=== PATIENT | female | born 1950 | race Caucasian/White ===

== ENCOUNTER 2017-11-27 09:06 | Emergency (ER) | payer OTHER ==
[2017-11-27 09:15] VITALS: BP 155/90; PULSE 73; TEMP 97.7; BMI 32.9
--- NOTE | 2017-11-27 09:44 | PDOC ---
History of Present Illness - General Chief Complaint: Asthma Stated Complaint: SOB, PAIN (ASTHMA) Time Seen by Provider: 11/27/17 09:32 History Source: Patient Exam Limitations: No Limitations - History of Present Illness Initial Comments: 11/27/17 15:57 Patient is a 67-year-old female with history of depression and anxiety presents with nasal congestion, and reports she keeps having asthma exacerbations at home , is having issues with rats and cockroaches. 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 Patient is breathing comfortably, no tachypnea. No fever. No chest pain or shortness of breath. Past Medical History: [Denies]. Allergies: No known allergies Medications: [] Family History: Non-contributory Social History: Denies smoking, alcohol use, or IVDU Vital signs on arrival are [notable for pulse of 96.] Review of Systems GENERAL/CONSTITUTIONAL: [No fever or chills. No weakness. No weight change.] HEAD, EYES, EARS, NOSE AND THROAT: [No change in vision. No ear pain or discharge. No sore throat. ] CARDIOVASCULAR: [No chest pain or shortness of breath.] RESPIRATORY: [Cough, no wheezing, no hemoptysis] GASTROINTESTINAL: [No nausea, vomiting, diarrhea or constipation. No rectal bleeding.] GENITOURINARY: [No dysuria, frequency, or change in urination.] MUSCULOSKELETAL: [No joint or muscle swelling or pain. No neck or back pain.] SKIN : [No rash or easy bruising.] NEUROLOGIC: [No headache, vertigo, loss of consciousness, or loss of sensation.] PSYCHIATRIC: [No depression or anxiety.] ENDOCRINE: [No increased thirst. No abnormal weight change.] HEMATOLOGIC/LYMPHATIC: [No anemia, easy bleeding, or history of blood clots.] ALLERGIC/IMMUNOLOGIC: [No hives or skin allergy. No latex allergy.] Physical Exam: GENERAL: [The patient is awake, alert, and fully oriented, in no acute distress. ] HEAD: [Normal with no signs of trauma.] EYES: [Pupils equal, round and reactive to light, extraocular movements intact, sclera anicteric, conjunctiva clear.] ENT: [Ears normal, nares patent, oropharynx clear without exudates. Moist mucous membranes. No uvula deviation] NECK: [Normal range of motion, supple without lymphadenopathy, JVD, or masses.] LUNGS: [Breath sounds equal, clear to auscultation bilaterally. No wheezes, and no crackles.] HEART: [Regular rate and rhythm, normal S1 and S2 without murmur, rub or gallop. ] ABDOMEN: [Soft, nontender, normoactive bowel sounds. No guarding, no rebound. No masses. No bruising or abrasions] RECTAL : [Guaiac negative, normal rectal tone.] MUSCULOSKELETAL: [Normal range of motion, no edema. No clubbing or cyanosis. No cords, erythema, or tenderness. No CVA Tenderness with fist.] NEUROLOGICAL: [Cranial nerves II through XII grossly intact. Normal speech, normal gait.] PSYCH: [Normal mood, normal affect.] SKIN: [Warm, Dry, normal turgor, no rashes or lesions noted.] 11/27/17 17:24 Past History - Past Medical History Allergies/Adverse Reactions: Allergies Allergy/AdvReac Type Severity Reaction Status Date / Time Penicillins Allergy Verified 11/27/17 09:08 Home Medications: Ambulatory Orders Albuterol 0.083% Nebulizer Maryjo [Ventolin 0.083% Nebulizer Soln -] 1 neb NEB Q4H #30 vial 11/27/17 Fluticasone Prop 0.05% Nasal [Flonase -] 1 - 2 spray NS BID #1 spray.pump Loratadine [Claritin] 10 mg PO HS #30 tablet 11/27/17 Nebulizer [Truneb Nebulizer] 1 each MC Q4H PRN #1 each 11/27/17 Asthma: Yes Cardiac Disorders: Yes (ANGINA) COPD: No Diabetes: Yes HTN: Yes Other medical history: VERTIGO - Surgical History Abdominal Surgery: Yes Appendectomy: Yes - Immunization History Immunization Up to Date: Yes - Suicide/Smoking/Psychosocial Hx Smoking History: Never smoked Have you smoked in the past 12 months: No Information on smoking cessation initiated: No Hx Alcohol Use: No Drug/Substance Use Hx: No Substance Use Type: None *Physical Exam - Vital Signs Last Vital Signs Temp Pulse Resp BP Pulse Ox 97.7 F 73 16 155/90 99 11/27/17 09:09 11/27/17 09:09 11/27/17 09:09 11/27/17 09:09 11/27/17 09:09 Medical Decision Making - Medical Decision Making 11/27/17 17:27 A/P: Patient here requesting albuterol for her nebulizer at home. Reports having asthma exacerbations prior to arrival. Upon arrival lungs are clear, patient with no tachypnea breathing comfortably. In no acute distress. Patient does have nasal congestion with no evidence of sinusitis. I will discharge patient home on Flonase, albuterol for nebulizer and Claritin, to follow-up with ENT if symptoms persist. If any chest pain, shortness of breath, wheezing, or any other concerns return to ER *DC/Admit/Observation/Transfer Diagnosis at time of Disposition: Reactive airway disease Qualifiers: Asthma severity: mild Asthma persistence: intermittent Asthma complication type : uncomplicated Qualified Code(s): J45.20 - Mild intermittent asthma, uncomplicated - Discharge Dispostion Disposition: HOME Condition at time of disposition: Stable Admit: No - Prescriptions Prescriptions: Albuterol 0.083% Nebulizer Maryjo [Ventolin 0.083% Nebulizer Soln -] 1 neb NEB Q4H #30 vial Fluticasone Prop 0.05% Nasal [Flonase -] 1 - 2 spray NS BID #1 spray.pump Loratadine [Claritin] 10 mg PO HS #30 tablet Nebulizer [Truneb Nebulizer] 1 each MC Q4H PRN #1 each PRN Reason: Asthma - Referrals Referrals: Eduardo Solis MD [Staff Physician] - - Patient Instructions Printed Discharge Instructions: Asthma -- Adult Additional Instructions: Recommend follow-up with Dr. Solis or your primary care doctor Please use treatments as needed, albuterol inhaler as needed. If any chest pain, shortness of breath, or any other concerns return to ER - Post Discharge Activity
== END 2017-11-27 09:48 | disposition home or self-care (01) ==
LOC: JERFT 09:06
DX: J45.20 Mild intermittent asthma, uncomplicated (principal); R42 Dizziness and giddiness; I10 Essential (primary) hypertension
CPT/HCPCS: 99281-25

== ENCOUNTER 2018-10-19 07:55 | Emergency (ER) | payer OTHER ==
[2018-10-19 08:01] VITALS: BP 170/92; PULSE 95; TEMP 98.7; BMI 32.5
--- NOTE | 2018-10-19 08:09 | PDOC ---
History of Present Illness - General Chief Complaint: Respiratory Stated Complaint: ASTHMA Time Seen by Provider: 10/19/18 08:08 - History of Present Illness Initial Comments: 10/19/18 08:08 Ms. Balderrama is a 68 yo female w/ pmh of HTN, HLD, DM, asthma, depression, and anxiety who presents for evaluation of 1 week history of shortness of breath with cough productive of green sputum. EPatient reports she has additionally had fevers and chills over this time period has had some nausea with vomiting 2/ 2 coughing as well. Believes her asthma has been acting up on her. Has been taking her rescue inhaler at home without much improvement of symptoms. The patient denies chest pain, headache and dizziness. Denies dysuria, frequency , urgency and hematuria. PCP: Gaurav Past History - Past Medical History Allergies/Adverse Reactions: Allergies Allergy/AdvReac Type Severity Reaction Status Date / Time Penicillins Allergy Verified 10/19/18 08:01 Home Medications: Ambulatory Orders Acetaminophen [Tylenol Extra Strength] 500 mg PO Q6H PRN 03/17/18 Aspirin [Aspirin EC] 81 mg PO DAILY 03/17/18 Atorvastatin Ca [Lipitor] 40 mg PO HS 03/17/18 Cholecalciferol (Vitamin D3) [Vitamin D3] 5,000 unit PO DAILY 03/17/18 Lisinopril [Zestril] 40 mg PO DAILY 03/17/18 Meclizine HCl [Antivert -] 25 mg PO QID #30 tablet MDD 4 03/17/18 Metformin HCl [Glucophage] 500 mg PO DAILY 03/17/18 Metoprolol Succinate 25 mg PO DAILY 03/17/18 Montelukast Na [Singulair -] 10 mg PO HS 03/17/18 Omeprazole 40 mg PO DAILY 03/17/18 Azithromycin [Zithromax 250mg Tablets -] 250 mg PO UTDICT #6 tab 10/19/18 Prednisone 10 mg PO DAILY #16 tablet 10/19/18 Asthma: Yes Cardiac Disorders: Yes (ANGINA) COPD: No Diabetes: Yes HTN: Yes - Surgical History Abdominal Surgery: Yes Appendectomy: Yes - Immunization History Immunization Up to Date: Yes - Suicide/Smoking/Psychosocial Hx Smoking History: Never smoked Have you smoked in the past 12 months: No Hx Alcohol Use: No Drug/Substance Use Hx: No Substance Use Type: None Review of Systems - Review of Systems Comments:: 10/19/18 08:09 GENERAL/CONSTITUTIONAL: No fever or chills. No weakness. HEAD, EYES, EARS, NOSE AND THROAT: No change in vision. No ear pain or discharge. No sore throat. CARDIOVASCULAR: No chest pain or shortness of breath RESPIRATORY: No cough, wheezing, or hemoptysis. GASTROINTESTINAL: No nausea, vomiting, diarrhea or constipation. GENITOURINARY: No dysuria, frequency, or change in urination. MUSCULOSKELETAL: No joint or muscle swelling or pain. No neck or back pain. SKIN: No rash NEUROLOGIC: No headache, vertigo, loss of consciousness, or change in strength/ sensation. ENDOCRINE: No increased thirst. No abnormal weight change HEMATOLOGIC/LYMPHATIC: No anemia, easy bleeding, or history of blood clots. ALLERGIC/IMMUNOLOGIC: No hives or skin allergy. *Physical Exam - Vital Signs Last Vital Signs Temp Pulse Resp BP Pulse Ox 98.7 F 95 H 18 170/92 98 10/19/18 07:59 10/19/18 07:59 10/19/18 07:59 10/19/18 07:59 10/19/18 07:59 - Physical Exam Comments: 10/19/18 08:09 GENERAL: Awake, alert, and fully oriented, in no acute distress HEAD: No signs of trauma, normocephalic, atraumatic EYES: PERRLA, EOMI, sclera anicteric, conjunctiva clear ENT: Auricles normal inspection, hearing grossly normal, nares patent, oropharynx clear without exudates. Moist mucosa NECK: Normal ROM, supple, no lymphadenopathy, JVD, or masses LUNGS: +Diminshed lung sounds however no distress, speaks full sentences, clear to auscultation bilaterally HEART: Regular rate and rhythm, normal S1 and S2, no murmurs, rubs or gallops, peripheral pulses normal and equal bilaterally. ABDOMEN: Soft, nontender, normoactive bowel sounds. No guarding, no rebound. No masses EXTREMITIES: Normal inspection, Normal range of motion, no edema. No clubbing or cyanosis. NEUROLOGICAL: Cranial nerves II through XII grossly intact. Normal speech, normal gait, no focal sensorimotor deficits SKIN: Warm, Dry, normal turgor, no rashes or lesions noted. Moderate Sedation - Procedure Monitoring Vital Signs: Procedure Monitoring Vital Signs Temperature 98.7 F 10/19/18 07:59 Pulse Rate 95 H 10/19/18 07:59 Respiratory Rate 18 10/19/18 07:59 Blood Pressure 170/92 10/19/18 07:59 O2 Sat by Pulse Oximetry (%) 98 10/19/18 07:59 ED Treatment Course - LABORATORY CBC & Chemistry Diagram: 10/19/18 08:30 10/19/18 08:30 Medical Decision Making - Medical Decision Making 10/19/18 10:02 Ms. Balderrama is a 68 yo female w/ pmh as described who presents for evaluation of symptoms consistent with asthma exacerbation vs. viral illness. Patient given 1L NS and duonebs upon arrival with significant improvement of symptoms. Labs grossly wnl. EKG normal. CXR negative. No concern for acute process at this time. Repeat lung exam improved w/ no concerning findings. Discharging to home w/ outpatient Rx for prophylaxis of asthma exacerbation. *DC/Admit/Observation/Transfer Diagnosis at time of Disposition: Asthma exacerbation Qualifiers: Asthma severity: mild Asthma persistence: unspecified Qualified Code(s): J45.901 - Unspecified asthma with (acute) exacerbation - Discharge Dispostion Disposition: HOME - Prescriptions Prescriptions: Azithromycin [Zithromax 250mg Tablets -] 250 mg PO UTDICT #6 tab Prednisone 10 mg PO DAILY #16 tablet - Referrals Referrals: Roxana Nolasco MD [Primary Care Provider] - - Patient Instructions Printed Discharge Instructions: DI for Asthma -- Adult Additional Instructions: You were evaluated today in the ER for your shortness of breath symptoms. We gave you breathing treatments and steroids with improvement of your symptoms. We have also sent a prescription to your pharmacy for treatment. Take all medications as written. No concerning findings were found at this time. Return to ER if any further shortness of breath, fever, chills, or other concerning symptoms. - Post Discharge Activity
[2018-10-19] MEDS ORDERED: SODIUM CHLORIDE 1,000 ML IV STA (08:17)
[2018-10-19] MEDS ORDERED: methylPREDNISolone NA SUCC 125 MG/2 ML VIAL IVPUSH ONE (08:17)
[2018-10-19] MEDS ORDERED: ALBUTEROL SO4 2.5/IPRATROPIUM 0.5 INH SOL 3 ML VIAL.NEB. NEB ONE (08:21)
--- NOTE | 2018-10-19 08:39 | PDOC ---
Attending Attestation - HPI HPI: 10/19/18 09:47 The patient is a 68 year old female with a PMH of HTN, HLD, DM, and asthma with presents to the ER complaining of shortness of breath and productive cough for the past week. Patient states the cough is productive of yellow sputum and has had a few episodes of nausea and NB, NB vomit secondary to her cough. Patient also endorses fever and chills. Patient typically uses an inhaler for asthma, but did not notice any improvements after using it at home. Patient is not on home 02. The patient denies chest pain, headache, dizziness, diarrhea and constipation. Denies dysuria, frequency, urgency and hematuria. Allergies: NKA Past surgical history: None reported. Social history: No reported alcohol, drug or cigarette use. PCP: Dr. Nolasco - Physicial Exam PE: 10/19/18 09:58 ADULT PHYSICAL EXAM Constitutional: Awake, alert, oriented. No acute distress. Head: Normocephalic. Atraumatic Eyes: PERRL. EOMI. Conjunctivae are not pale. ENT: Mucous membranes are moist and intact. Posterior pharynx without exudates or erythema. Uvula midline. (+) Coughing yellow sputum. Neck: Supple. Full ROM. No lymphadenopathy. Cardiovascular: Regular rate. Regular rhythm. S1, S2 regular. Distal pulses are 2+ and symmetric. Pulmonary/Chest: No evidence of respiratory distress. Clear to auscultation bilaterally No wheezing, rales or rhonchi. Abdominal: Soft and non-distended. There is no tenderness. No rebound, guarding or rigidity. No organomegaly. No palpable masses. Good bowel sounds. Musculoskeletal: No edema. No cyanosis. No clubbing. Full range of motion in all extremities. Nocalf tenderness. Radial/pedal pulses are intact and 2+ bilaterally Skin: Skin is warm and dry. No petechiae. No purpura. Neurological: Alert and oriented to person, place, and time. Cranial nerves II -XII are grossly intact. Normal speech. Strength is grossly symmetric. No sensory deficits. Psychiatric: Good eye contact. Normal interaction, affect and behavior. <Becca Luque - Last Filed: 10/19/18 09:59> - Resident Resident Name: Roger Vasquez - ED Attending Attestation I have performed the following: I have examined & evaluated the patient, The case was reviewed & discussed with the resident, I agree w/resident's findings & plan, Exceptions are as noted - Medical Decision Making 10/19/18 08:39 I, Dr. Carolann Quintero, DO, attest that this document has been prepared under my direction and personally reviewed by me in its entirety. I further attest, that it accurately reflects all work, treatment, procedures and medical decision -making performed by me. 10/19/18 10:00 a/p: 68yo female with sob x 1 week -cough- productive yellow sputum -using inhaler at home with some relief -no cp -nontoxic in appearance -no f/c -diminished bs initially on exam -will send labs, cxr, ekg 10/19/18 10:03 after nebs - lungs cta and pt feeling better pending trop cxr clear concern for mucopurulent bronchitis 10/19/18 10:04 trop negative will dc with steroids, aizthromycin <Carolann Quintero - Last Filed: 10/19/18 10:05> Heart Score/ECG Review - ECG Intrepretation Comment:: 10/19/18 09:39 sinus at 88, nl axis, nl interval, no acute st/t wave findings <Carolann Quintero - Last Filed: 10/19/18 10:05>
[2018-10-19 08:40] LABS: BASO % 0.6 % (0-2.0); EOS % 2.6 % (0-4.5); HEMATOCRIT 35.2 % (32.4-45.2); HEMOGLOBIN 12.3 GM/dL (10.7-15.3); LYMPH % 25.8 % (8-40); MCH 31.8 pg (25.7-33.7); MCHC 34.8 g/dl (32.0-36.0); MEAN CELL VOLUME 91.4 fl (80-96); MEAN PLT VOLUME 9.8 fl (7.5-11.1); MONO % 6.5 % (3.8-10.2); NEUT % 64.5 % (42.8-82.8); PLATELET COUNT 222 K/MM3 (134-434); RBC 3.85 M/mm3 (3.60-5.2); RDW 14.3 % (11.6-15.6)
[2018-10-19] MEDS: ALBUTEROL SO4 2.5/IPRATROPIUM 0.5 INH SOL 3 ML VIAL.NEB. NEB SCH ×2 (09:18→09:19)
[2018-10-19 09:20] LABS: ALBUMIN 2.9 g/dl (3.4-5.0); ALK PHOS 99 U/L (45-117); ANION GAP 9 MMOL/L (8-16); BILIRUBIN,TOTAL 0.3 mg/dL (0.2-1); BLOOD UREA NITROGEN 20 mg/dL (7-18); CALCIUM 9.2 mg/dL (8.5-10.1); CHLORIDE 109 mmol/L (98-107); CO2 26 mmol/L (21-32); CREATININE 0.9 mg/dL (0.55-1.3); GLUCOSE,RANDOM 136 mg/dL (74-106); POTASSIUM 3.9 mmol/L (3.5-5.1); SGOT/AST 17 U/L (15-37); SGPT/ALT 26 U/L (13-61); SODIUM 143 mmol/L (136-145); TOT PROT 7.7 g/dl (6.4-8.2)
[2018-10-19] MEDS ORDERED: predniSONE 20 MG TABLET (UD) PO ONE (10:00)
[2018-10-19] MEDS ORDERED: AZITHROMYCIN 250 MG TABLET PO ONE (10:01)
[2018-10-19] MEDS ORDERED: predniSONE 20 MG TABLET (UD) ONE (10:38)
[2018-10-19] MEDS ORDERED: AZITHROMYCIN 250 MG TABLET ONE (10:38)
--- NOTE | 2018-10-19 15:33 | EKG ---
Test Reason : Blood Pressure : / mmHG Vent. Rate : 088 BPM Atrial Rate : 088 BPM P-R Int : 156 ms QRS Dur : 096 ms QT Int : 378 ms P-R-T Axes : 043 016 035 degrees QTc Int : 457 ms NORMAL SINUS RHYTHM NORMAL ECG WHEN COMPARED WITH ECG OF 10-SEP-2007 07:30, NO SIGNIFICANT CHANGE WAS FOUND Confirmed by JP SCHROEDER MD ([id number]) on 10/19/2018 3:33:18 PM Referred By: Confirmed By:JP SCHROEDER MD
== END 2018-10-19 10:39 | disposition home or self-care (01) ==
LOC: JER 07:55
PROC: 3E0F7GC Introduction of Other Therapeutic Substance into Respiratory Tract, Via Natural or Artificial Opening (ICD-10-PCS; principal; 2018-10-19)
PROC: 3E0337Z Introduction of Electrolytic and Water Balance Substance into Peripheral Vein, Percutaneous Approach (ICD-10-PCS; 2018-10-19)
DX: J45.901 Unspecified asthma with (acute) exacerbation (principal)
CPT/HCPCS: 36415; 71045-TC-FY; 80053; 82550; 84484; 85025; 93005; 93010; 94640; 96360; 99282-25; J7030

== ENCOUNTER 2020-12-23 10:19 | Inpatient (IN) | payer MEDICARE, OTHER ==
[2020-12-23] MEDS ORDERED: SODIUM CHLORIDE 0.9% 500 ML INFUS.BAG IV ONE (12:10)
[2020-12-23] MEDS ORDERED: ACETAMINOPHEN 1000 MG/100 ML VIAL (NON FORMULARY) IVPB ONE (12:10)
[2020-12-23] MEDS ORDERED: ACETAMINOPHEN INJECTION 100 ML IVPB ONE (12:17)
[2020-12-23 12:52] LABS: BASO % 0.2 % (0-2.0); EOS % 0.8 % (0-4.5); LYMPH % 21.3 % (8-40); MCH 30.9 pg (25.7-33.7); MCHC 34.3 g/dl (32.0-36.0); MEAN CELL VOLUME 90.2 fl (80-96); MEAN PLT VOLUME 9.8 fl (7.5-11.1); MONO % 5.8 % (3.8-10.2); NEUT % 71.9 % (42.8-82.8); PLATELET COUNT 246 K/MM3 (134-434); RBC 4.21 M/mm3 (3.60-5.2); WHITE BLOOD COUNT 6.5 K/mm3 (4.0-10.0)
[2020-12-23 13:01] LABS: INR 1.21 (0.83-1.09); PROTHROMBIN TIME (PATIENT) 14.6 SEC (9.7-13.0)
[2020-12-23 13:14] LABS: ALBUMIN 2.9 g/dl (3.4-5.0); BLOOD UREA NITROGEN 12.5 mg/dL (7-18); CALCIUM 9.4 mg/dL (8.5-10.1)
[2020-12-23 13:18] LABS: CREATININE 0.8 mg/dL (0.55-1.3)
[2020-12-23 13:20] LABS: BILIRUBIN,TOTAL 0.6 mg/dL (0.2-1); TOT PROT 8.1 g/dl (6.4-8.2)
[2020-12-23] MEDS ORDERED: VANCOMYCIN 1,000 MG in DEXTROSE 5%-WATER - 250 ML IVPB ONE (15:06)
[2020-12-23] MEDS ORDERED: VANCOMYCIN 1 GRAM (PRE-DOCKED) 1,000 MG/250 ML BAG IVPB ONE (15:20)
[2020-12-23] MEDS ORDERED: SODIUM CHLORIDE 0.9% P/F 10 ML VIAL IJ ONE ×2 (16:39→16:42)
[2020-12-23] MEDS ORDERED: PROPOFOL 20 ML ONE ×2 (16:40)
[2020-12-23] MEDS ORDERED: LIDOCAINE HCL/PF 2% SDV 5ML VIAL ONE (16:42)
[2020-12-23] MEDS ORDERED: MIDAZOLAM HCL 2 MG/2 ML SINGLE DOSE VIAL ONE (16:45)
[2020-12-23] MEDS ORDERED: ONDANSETRON 4 MG/2 ML VIAL IVPUSH PRN (17:25)
[2020-12-23] MEDS ORDERED: MORPHINE SULFATE 2 MG/ML VIAL IVPUSH PRN (18:28)
[2020-12-23] MEDS: LACTATED RINGERS SOLUTION 1,000 ML IV SCH (21:15)
[2020-12-23] MEDS: ATORVASTATIN CA 40 MG TABLET (FP) PO SCH (23:28)
[2020-12-23] MEDS: MONTELUKAST NA 10 MG TABLET PO SCH (23:28)
[2020-12-24] MEDS: INSULIN SLIDING SCALE (NOVOLOG) 1 VIAL SQ SCH ×4 (00:11→16:55)
[2020-12-24 01:37] VITALS: BMI 35.4
[2020-12-24] MEDS ORDERED: VANCOMYCIN 1 GRAM (PRE-DOCKED) 1,000 MG/250 ML BAG IVPB ONE (05:00)
[2020-12-24] MEDS ORDERED: VANCOMYCIN 1 GRAM (PRE-DOCKED) 1,000 MG/250 ML BAG IVPB SCH (05:00)
[2020-12-24] MEDS ORDERED: metFORMIN HCL 500 MG TABLET (FP) PO SCH (07:00)
[2020-12-24 08:24] LABS: BASO % 0.3 % (0-2.0); EOS % 2.4 % (0-4.5); HEMATOCRIT 32.8 % (32.4-45.2); HEMOGLOBIN 11.3 GM/dL (10.7-15.3); LYMPH % 30.5 % (8-40); MCH 30.9 pg (25.7-33.7); MCHC 34.5 g/dl (32.0-36.0); MEAN CELL VOLUME 89.6 fl (80-96); MEAN PLT VOLUME 10.3 fl (7.5-11.1); MONO % 6.2 % (3.8-10.2); NEUT % 60.6 % (42.8-82.8); PLATELET COUNT 233 K/MM3 (134-434); RBC 3.66 M/mm3 (3.60-5.2); RDW 14.1 % (11.6-15.6); WHITE BLOOD COUNT 5.1 K/mm3 (4.0-10.0)
[2020-12-24 08:47] LABS: CALCIUM 8.9 mg/dL (8.5-10.1)
[2020-12-24 08:49] LABS: ALBUMIN 2.3 g/dl (3.4-5.0); MAGNESIUM 2.1 mg/dL (1.8-2.4)
[2020-12-24 08:51] LABS: CREATININE 0.7 mg/dL (0.55-1.3)
[2020-12-24 08:53] LABS: BILIRUBIN,TOTAL 0.6 mg/dL (0.2-1)
[2020-12-24 08:54] LABS: TOT PROT 6.7 g/dl (6.4-8.2)
[2020-12-24] MEDS: metoPROLOL SUCCINATE 25 MG TAB.SR.24H (FP) PO SCH (09:37)
[2020-12-24] MEDS: LISINOPRIL 20 MG TABLET PO SCH (09:37)
[2020-12-24] MEDS: PANTOPRAZOLE 40 MG TABLET PO SCH (09:38)
[2020-12-24] MEDS: LACTATED RINGERS SOLUTION 1,000 ML IV SCH (09:38)
[2020-12-24] MEDS ORDERED: PATIENT'S OWN MEDICATION (NON-FORMULARY) (Lisinopril [Zestril] 40 MG Tablet) PO SCH (10:00)
[2020-12-24] MEDS ORDERED: PATIENT'S OWN MEDICATION (NON-FORMULARY) (Omeprazole [Omeprazole] 20 MG Tablet.Dr) PO SCH (10:00)
[2020-12-24] MEDS ORDERED: predniSONE 10 MG TABLET (UD) PO SCH (10:00)
[2020-12-24] MEDS ORDERED: ACETAMINOPHEN 325 MG TABLET (FP) PO PRN (12:07)
[2020-12-24] MEDS ORDERED: CEFEPIME 1 GM in DEXTROSE 5%-WATER 1 GM/100 ML BAG IVPB SCH (15:30)
[2020-12-24] MEDS ORDERED: DEXTROSE 5%-WATER 100 ML IVPB ONE (15:57)
[2020-12-24] MEDS ORDERED: CEFEPIME HCL 1 GM VIAL (RESTRICTED TO ID) ONE (15:57)
[2020-12-24] MEDS ORDERED: oxyCODONE HCL 5 MG TABLET PO SCH (16:00)
[2020-12-24] MEDS: VANCOMYCIN 1 GRAM (PRE-DOCKED) 1,000 MG/250 ML BAG IVPB SCH (16:04)
[2020-12-24] MEDS ORDERED: oxyCODONE HCL 5 MG TABLET PO PRN (16:04)
[2020-12-24] MEDS: CEFEPIME 1 GM in DEXTROSE 5%-WATER 1 GM/100 ML BAG IVPB SCH (17:14)
[2020-12-24] MEDS ORDERED: PT OWN MED DRAWER 7, Y5N ONE (22:40)
[2020-12-24] MEDS: ATORVASTATIN CA 40 MG TABLET (FP) PO SCH (22:43)
[2020-12-24] MEDS: MONTELUKAST NA 10 MG TABLET PO SCH (22:43)
[2020-12-25] MEDS: CEFEPIME 1 GM in DEXTROSE 5%-WATER 1 GM/100 ML BAG IVPB SCH ×3 (03:04→17:51)
[2020-12-25] MEDS ORDERED: CEFEPIME HCL 1 GM VIAL (RESTRICTED TO ID) ONE ×3 (04:58→17:02)
[2020-12-25] MEDS ORDERED: DEXTROSE 5%-WATER 100 ML IVPB ONE ×3 (04:58→17:02)
[2020-12-25] MEDS: VANCOMYCIN 1 GRAM (PRE-DOCKED) 1,000 MG/250 ML BAG IVPB SCH ×2 (06:00→16:01)
[2020-12-25] MEDS: INSULIN SLIDING SCALE (NOVOLOG) 1 VIAL SQ SCH ×3 (06:04→15:53)
[2020-12-25] MEDS: LISINOPRIL 20 MG TABLET PO SCH (10:04)
[2020-12-25] MEDS: metoPROLOL SUCCINATE 25 MG TAB.SR.24H (FP) PO SCH (10:04)
[2020-12-25] MEDS: PANTOPRAZOLE 40 MG TABLET PO SCH (10:04)
[2020-12-25] MEDS ORDERED: INSULIN (NOVOLOG) ASPART 100 UNITS/ML 10ML VIAL ONE (10:16)
[2020-12-25 11:07] LABS: BASO % 0.2 % (0-2.0); EOS % 2.1 % (0-4.5); HEMATOCRIT 35.1 % (32.4-45.2); HEMOGLOBIN 11.7 GM/dL (10.7-15.3); MCH 30.3 pg (25.7-33.7); MCHC 33.4 g/dl (32.0-36.0); MEAN CELL VOLUME 90.7 fl (80-96); MEAN PLT VOLUME 10.3 fl (7.5-11.1); MONO % 4.8 % (3.8-10.2); NEUT % 65.9 % (42.8-82.8); PLATELET COUNT 273 K/MM3 (134-434); RBC 3.87 M/mm3 (3.60-5.2); RDW 14.2 % (11.6-15.6); WHITE BLOOD COUNT 6.7 K/mm3 (4.0-10.0)
[2020-12-25 11:25] LABS: CALCIUM 9.3 mg/dL (8.5-10.1)
[2020-12-25 11:26] LABS: ALBUMIN 2.6 g/dl (3.4-5.0); BLOOD UREA NITROGEN 13.7 mg/dL (7-18); MAGNESIUM 2.1 mg/dL (1.8-2.4)
[2020-12-25 11:29] LABS: CREATININE 0.9 mg/dL (0.55-1.3)
[2020-12-25 11:30] LABS: BILIRUBIN,TOTAL 0.4 mg/dL (0.2-1)
[2020-12-25 11:32] LABS: TOT PROT 7.3 g/dl (6.4-8.2)
[2020-12-25] MEDS: ENOXAPARIN NA (PORCINE) 40 MG/0.4 ML DISP.SYRIN SQ SCH (11:50)
[2020-12-25] MEDS: MONTELUKAST NA 10 MG TABLET PO SCH (21:03)
[2020-12-25] MEDS: ATORVASTATIN CA 40 MG TABLET (FP) PO SCH (21:03)
[2020-12-26] MEDS ORDERED: CEFEPIME HCL 1 GM VIAL (RESTRICTED TO ID) ONE ×2 (01:36→09:53)
[2020-12-26] MEDS ORDERED: DEXTROSE 5%-WATER 100 ML IVPB ONE ×2 (01:36→09:53)
[2020-12-26] MEDS: CEFEPIME 1 GM in DEXTROSE 5%-WATER 1 GM/100 ML BAG IVPB SCH ×2 (01:40→10:21)
[2020-12-26] MEDS: VANCOMYCIN 1 GRAM (PRE-DOCKED) 1,000 MG/250 ML BAG IVPB SCH (05:22)
[2020-12-26] MEDS: INSULIN SLIDING SCALE (NOVOLOG) 1 VIAL SQ SCH ×2 (06:07→10:37)
[2020-12-26 06:22] VITALS: BP 156/72; PULSE 71; TEMP 98.3
[2020-12-26 08:12] LABS: ALBUMIN 2.4 g/dl (3.4-5.0); BLOOD UREA NITROGEN 16.2 mg/dL (7-18); CALCIUM 8.9 mg/dL (8.5-10.1)
[2020-12-26 08:14] LABS: BASO % 0.7 % (0-2.0); EOS % 2.6 % (0-4.5); HEMATOCRIT 32.1 % (32.4-45.2); HEMOGLOBIN 11.1 GM/dL (10.7-15.3); LYMPH % 34.7 % (8-40); MCHC 34.4 g/dl (32.0-36.0); MEAN PLT VOLUME 10.2 fl (7.5-11.1); MONO % 7.2 % (3.8-10.2); NEUT % 54.8 % (42.8-82.8); PLATELET COUNT 268 K/MM3 (134-434); RBC 3.57 M/mm3 (3.60-5.2); RDW 14.1 % (11.6-15.6); WHITE BLOOD COUNT 6.1 K/mm3 (4.0-10.0)
[2020-12-26 08:15] LABS: CREATININE 0.9 mg/dL (0.55-1.3)
[2020-12-26 08:17] LABS: BILIRUBIN,TOTAL 0.5 mg/dL (0.2-1); TOT PROT 6.7 g/dl (6.4-8.2)
[2020-12-26] MEDS ORDERED: CHOLECALCIFEROL (VIT D3) 5000 UNITS (125 MCG) CAP PO SCH (10:00)
[2020-12-26] MEDS ORDERED: ASPIRIN COATED 81 MG TABLET.EC PO SCH (10:00)
[2020-12-26] MEDS: PANTOPRAZOLE 40 MG TABLET PO SCH (10:21)
[2020-12-26] MEDS: ENOXAPARIN NA (PORCINE) 40 MG/0.4 ML DISP.SYRIN SQ SCH (10:21)
[2020-12-26] MEDS: LISINOPRIL 20 MG TABLET PO SCH (10:22)
[2020-12-26] MEDS: metoPROLOL SUCCINATE 25 MG TAB.SR.24H (FP) PO SCH (10:22)
[2020-12-26] MEDS ORDERED: SULFAMETHOXAZOLE/TRIMETHOPRIM 800MG/160MG D.S. TABLET PO SCH (12:30)
== END 2020-12-26 15:12 | disposition home health service (06) | DRG 584 ==
LOC: JER 10:19 → JERBED 15:13 → J7W 21:36
PROVIDERS: ADMIT Internal Medicine; ATTEND Nurse Practitioner Acute Care
PROC: 0H9U0ZX Drainage of Left Breast, Open Approach, Diagnostic (ICD-10-PCS; principal; 2020-12-23 15:00)
DX: N61.1 Abscess of the breast and nipple (principal); J45.901 Unspecified asthma with (acute) exacerbation; I10 Essential (primary) hypertension; E78.5 Hyperlipidemia, unspecified; E11.9 Type 2 diabetes mellitus without complications; K21.9 Gastro-esophageal reflux disease without esophagitis; R42 Dizziness and giddiness; N61.0 Mastitis without abscess; F41.8 Other specified anxiety disorders; Z88.0 Allergy status to penicillin
CPT/HCPCS: 36415; 76641-TC-LT; 80053; 82962; 83735; 85025; 85610; 86850; 86900; 86901; 87040; 87070; 87186; 87205; 94760; 97116-GP; 97162-GP; 99285-25; C9803; J0131; U0003; U0005

== ENCOUNTER 2021-09-01 12:57 | Inpatient (IN) | payer OTHER ==
[2021-09-01 17:02] LABS: BASO % 0.3 % (0-2.0); EOS % 1.7 % (0-4.5); HEMATOCRIT 40.6 % (32.4-45.2); HEMOGLOBIN 13.7 GM/dL (10.7-15.3); LYMPH % 28.2 % (8-40); MCH 30.7 pg (25.7-33.7); MCHC 33.7 g/dl (32.0-36.0); MEAN CELL VOLUME 91.1 fl (80-96); MONO % 6.3 % (3.8-10.2); NEUT % 63.5 % (42.8-82.8); PLATELET COUNT 238 10^3/uL (134-434); RBC 4.45 M/mm3 (3.60-5.2); RDW 14.5 % (11.6-15.6)
[2021-09-01 17:14] LABS: CALCIUM 9.6 mg/dL (8.5-10.1)
[2021-09-01 17:15] LABS: ALBUMIN 3.2 g/dl (3.4-5.0)
[2021-09-01 17:18] LABS: CREATININE 0.9 mg/dL (0.55-1.3)
[2021-09-01 17:19] LABS: BILIRUBIN,TOTAL 0.4 mg/dL (0.2-1); TOT PROT 8.5 g/dl (6.4-8.2)
[2021-09-02 10:09] VITALS: BMI 35.1
[2021-09-02 13:03] LABS: BASO % 0.5 % (0-2.0); EOS % 2.1 % (0-4.5); HEMATOCRIT 38.7 % (32.4-45.2); HEMOGLOBIN 13.4 GM/dL (10.7-15.3); LYMPH % 38.5 % (8-40); MCH 31.5 pg (25.7-33.7); MCHC 34.7 g/dl (32.0-36.0); MEAN CELL VOLUME 90.8 fl (80-96); MEAN PLT VOLUME 10.3 fl (7.5-11.1); MONO % 5.9 % (3.8-10.2); PLATELET COUNT 240 10^3/uL (134-434); RBC 4.26 M/mm3 (3.60-5.2); RDW 14.3 % (11.6-15.6); WHITE BLOOD COUNT 5.6 K/mm3 (4.0-10.0)
[2021-09-02 13:18] LABS: INR 1.13 (0.83-1.09); PROTHROMBIN TIME (PATIENT) 13.2 SEC (9.7-13.0)
[2021-09-02 13:21] LABS: ACTIVATED PTT 27.8 SECONDS (25.2-36.5)
[2021-09-02 13:32] LABS: CALCIUM 9.3 mg/dL (8.5-10.1)
[2021-09-02 13:33] LABS: BLOOD UREA NITROGEN 12.4 mg/dL (7-18); MAGNESIUM 1.8 mg/dL (1.8-2.4)
[2021-09-02 13:36] LABS: CREATININE 0.8 mg/dL (0.55-1.3); PHOSPHOROUS 3.2 mg/dL (2.5-4.9)
[2021-09-02 14:51] LABS: EPI CELLS 11 /uL (0-25.1); HYALINE CASTS 1 /uL (0-3.1); PH,URINE 5.5 (5.0-8.0); URINE APPEARANCE CLEAR; URINE BACTERIA 75 /uL (0-1359); URINE BILIRUBIN NEGATIVE (NEGATIVE); URINE COLOR YELLOW; URINE GLUCOSE (UA) NEGATIVE (NEGATIVE); URINE KETONE NEGATIVE (NEGATIVE); URINE LEUK ESTERASE TRACE (NEGATIVE); URINE NITRITE NEGATIVE (NEGATIVE); URINE PROTEIN NEGATIVE (NEGATIVE); URINE RBC 6 /uL (0-23.9); URINE UROBILINOGEN 0.2 mg/dL (0.2-1.0); URINE WBC 21 /uL (0-25.8)
[2021-09-03 07:58] LABS: HEMATOCRIT 36.9 % (32.4-45.2); HEMOGLOBIN 12.7 GM/dL (10.7-15.3); MCH 30.9 pg (25.7-33.7); MCHC 34.4 g/dl (32.0-36.0); MEAN CELL VOLUME 89.9 fl (80-96); MEAN PLT VOLUME 9.6 fl (7.5-11.1); PLATELET COUNT 221 10^3/uL (134-434); RDW 14.3 % (11.6-15.6); WHITE BLOOD COUNT 6.6 K/mm3 (4.0-10.0)
[2021-09-03 07:59] LABS: ALBUMIN 2.6 g/dl (3.4-5.0); CALCIUM 8.5 mg/dL (8.5-10.1)
[2021-09-03 08:02] LABS: CREATININE 1.1 mg/dL (0.55-1.3)
[2021-09-03 08:04] LABS: BILIRUBIN,TOTAL 0.5 mg/dL (0.2-1); TOT PROT 7.2 g/dl (6.4-8.2)
[2021-09-04 09:29] LABS: HEMATOCRIT 38.4 % (32.4-45.2); MCH 31.3 pg (25.7-33.7); MEAN CELL VOLUME 91.9 fl (80-96); MEAN PLT VOLUME 10.3 fl (7.5-11.1); PLATELET COUNT 233 10^3/uL (134-434); RBC 4.17 M/mm3 (3.60-5.2); RDW 14.7 % (11.6-15.6); WHITE BLOOD COUNT 6.6 K/mm3 (4.0-10.0)
[2021-09-04 10:05] LABS: BLOOD UREA NITROGEN 26.7 mg/dL (7-18); CALCIUM 9.3 mg/dL (8.5-10.1)
[2021-09-04 10:07] LABS: ALBUMIN 2.7 g/dl (3.4-5.0)
[2021-09-04 10:10] LABS: TOT PROT 7.6 g/dl (6.4-8.2)
[2021-09-04 10:26] LABS: BILIRUBIN,TOTAL 0.4 mg/dL (0.2-1)
[2021-09-04 15:39] VITALS: BP 161/84; PULSE 88; TEMP 98.4
== END 2021-09-04 16:26 | disposition home or self-care (01) | DRG 601 ==
LOC: JER 12:57 → JERBED 21:41 → OBSVTOIN 23:25 → J7W 09-02 06:20
PROVIDERS: ADMIT Internal Medicine; ATTEND Internal Medicine
DX: N61.1 Abscess of the breast and nipple (principal); I10 Essential (primary) hypertension; E78.5 Hyperlipidemia, unspecified; E11.65 Type 2 diabetes mellitus with hyperglycemia; J45.909 Unspecified asthma, uncomplicated; E66.9 Obesity, unspecified; H40.20X0 Unspecified primary angle-closure glaucoma, stage unspecified; K21.9 Gastro-esophageal reflux disease without esophagitis; Z68.35 Body mass index [BMI] 35.0-35.9, adult
CPT/HCPCS: 36415; 71046-TC-FY; 76604; 80048; 80053; 81003; 82962; 83735; 84100; 85025; 85027; 85610; 85730; 86850; 86900; 86901; 87040; 87070; 87086; 87186; 87205; 93005; 93010; 99285-25; C9803; G0378; G0480; U0003; U0005

== ENCOUNTER 2021-09-21 11:30 | Emergency (ER) | payer OTHER ==
[2021-09-21 11:48] VITALS: BP 147/92; PULSE 105; TEMP 98.2; BMI 32.0
[2021-09-21] MEDS ORDERED: ONDANSETRON *ODT* 4 MG TABLET SL ONE (13:08)
[2021-09-21] MEDS ORDERED: SODIUM CHLORIDE 1,000 ML IV STA (13:08)
[2021-09-21] MEDS ORDERED: ONDANSETRON 4 MG/2 ML VIAL ONE (13:11)
[2021-09-21] MEDS ORDERED: ONDANSETRON 4 MG/2 ML VIAL IVPUSH ONE (13:14)
[2021-09-21 13:46] LABS: BASO % 0.2 % (0-2.0); HEMATOCRIT 44.8 % (32.4-45.2); HEMOGLOBIN 14.7 GM/dL (10.7-15.3); LYMPH % 31.6 % (8-40); MCH 29.8 pg (25.7-33.7); MCHC 32.7 g/dl (32.0-36.0); MEAN CELL VOLUME 91.1 fl (80-96); MEAN PLT VOLUME 10.7 fl (7.5-11.1); MONO % 6.6 % (3.8-10.2); NEUT % 61.6 % (42.8-82.8); PLATELET COUNT 149 10^3/uL (134-434); RBC 4.91 M/mm3 (3.60-5.2); RDW 14.8 % (11.6-15.6); WHITE BLOOD COUNT 4.2 K/mm3 (4.0-10.0)
[2021-09-21 14:00] LABS: CHLORIDE 105 mmol/L (98-107); SODIUM 137 mmol/L (136-145)
[2021-09-21 14:02] LABS: CALCIUM 9.2 mg/dL (8.5-10.1)
[2021-09-21 14:03] LABS: BLOOD UREA NITROGEN 25.5 mg/dL (7-18); CO2 25 mmol/L (21-32); GLUCOSE,RANDOM 249 mg/dL (74-106)
[2021-09-21 14:06] LABS: CREATININE 1.5 mg/dL (0.55-1.3); SGOT/AST 127 U/L (15-37)
[2021-09-21 14:09] LABS: ALK PHOS 76 U/L (45-117)
[2021-09-21 14:35] LABS: ANION GAP 8 MMOL/L (8-16); SGPT/ALT 75 U/L (13-61)
[2021-09-21 15:42] LABS: CALCIUM 8.4 mg/dL (8.5-10.1)
[2021-09-21 15:43] LABS: ALBUMIN 2.9 g/dl (3.4-5.0); BLOOD UREA NITROGEN 24.9 mg/dL (7-18)
[2021-09-21 15:46] LABS: CREATININE 1.4 mg/dL (0.55-1.3)
[2021-09-21 15:47] LABS: BILIRUBIN,TOTAL 0.4 mg/dL (0.2-1)
[2021-09-21 15:48] LABS: TOT PROT 7.5 g/dl (6.4-8.2)
== END 2021-09-21 17:14 | disposition home or self-care (01) ==
LOC: JER 11:30
PROC: 3E033NZ Introduction of Analgesics, Hypnotics, Sedatives into Peripheral Vein, Percutaneous Approach (ICD-10-PCS; principal; 2021-09-21)
PROC: 3E0337Z Introduction of Electrolytic and Water Balance Substance into Peripheral Vein, Percutaneous Approach (ICD-10-PCS; 2021-09-21)
DX: U07.1 COVID-19 (principal); B34.9 Viral infection, unspecified; J06.9 Acute upper respiratory infection, unspecified; R05.9 Cough, unspecified; R09.81 Nasal congestion; J12.82 Pneumonia due to coronavirus disease 2019
CPT/HCPCS: 36415; 71046-TC-FY; 80053; 82550; 82553; 84484; 85025; 87804; 99284-25; C9803; U0003; U0005

== ENCOUNTER 2021-10-04 12:03 | Inpatient (IN) | payer OTHER ==
[2021-10-04 15:14] LABS: BASO % 0.3 % (0-2.0); EOS % 0.1 % (0-4.5); HEMATOCRIT 48.2 % (32.4-45.2); HEMOGLOBIN 15.7 GM/dL (10.7-15.3); LYMPH % 15.5 % (8-40); MCH 29.4 pg (25.7-33.7); MCHC 32.6 g/dl (32.0-36.0); MEAN CELL VOLUME 90.2 fl (80-96); MEAN PLT VOLUME 11.7 fl (7.5-11.1); MONO % 7.4 % (3.8-10.2); NEUT % 76.7 % (42.8-82.8); PLATELET COUNT 204 10^3/uL (134-434); RBC 5.35 M/mm3 (3.60-5.2); RDW 15.1 % (11.6-15.6); WHITE BLOOD COUNT 9.2 K/mm3 (4.0-10.0)
[2021-10-04 15:17] LABS: EPI CELLS 11 /uL (0-25.1); HYALINE CASTS 17 /uL (0-3.1); URINE APPEARANCE CLOUDY; URINE BACTERIA 0 /uL (0-1359); URINE BILIRUBIN 1+ (NEGATIVE); URINE COLOR DK YELLOW; URINE GLUCOSE (UA) NEGATIVE (NEGATIVE); URINE KETONE NEGATIVE (NEGATIVE); URINE LEUK ESTERASE 2+ (NEGATIVE); URINE NITRITE NEGATIVE (NEGATIVE); URINE PROTEIN 1+ (NEGATIVE); URINE WBC 130 /uL (0-25.8)
[2021-10-04 15:43] LABS: ALBUMIN 3.4 g/dl (3.4-5.0)
[2021-10-04 15:45] LABS: INR 1.03 (0.83-1.09); PROTHROMBIN TIME (PATIENT) 11.9 SEC (9.7-13.0)
[2021-10-04 15:46] LABS: ACTIVATED PTT 25.6 SECONDS (25.2-36.5); CREATININE 2.4 mg/dL (0.55-1.3)
[2021-10-04 15:47] LABS: BILIRUBIN,TOTAL 0.9 mg/dL (0.2-1); TOT PROT 8.2 g/dl (6.4-8.2)
[2021-10-04 15:56] LABS: BLOOD UREA NITROGEN 91.4 mg/dL (7-18); CALCIUM 10.1 mg/dL (8.5-10.1)
[2021-10-04] MEDS ORDERED: ONDANSETRON 4 MG/2 ML VIAL IVPUSH ONE (16:10)
[2021-10-04] MEDS ORDERED: LACTATED RINGERS SOLUTION 1000 ML INFUS.BAG IV ONE (16:10)
[2021-10-04] MEDS ORDERED: ACETAMINOPHEN 1000 MG/100 ML BAG IVPB ONE (16:11)
[2021-10-04] MEDS ORDERED: CEFTRIAXONE 1,000 MG in DEXTROSE 5%-WATER - 50 ML IVPB ONE (16:30)
[2021-10-04] MEDS ORDERED: ACETAMINOPHEN INJECTION 100 ML IVPB ONE (16:30)
[2021-10-04] MEDS ORDERED: ONDANSETRON 4 MG/2 ML VIAL ONE (16:31)
[2021-10-04] MEDS ORDERED: CEFTRIAXONE 1 GM/50 ML BAG ONE (17:11)
[2021-10-04 18:34] LABS: URINE RBC 53 /uL (0-23.9)
[2021-10-04 21:47] LABS: CHLORIDE 119 mmol/L (98-107); SODIUM 152 mmol/L (136-145)
[2021-10-04 21:50] LABS: ANION GAP 8 MMOL/L (8-16); BLOOD UREA NITROGEN 77.1 mg/dL (7-18); CO2 25 mmol/L (21-32); GLUCOSE,RANDOM 227 mg/dL (74-106)
[2021-10-04 21:52] LABS: CREATININE 1.6 mg/dL (0.55-1.3)
[2021-10-04 22:51] LABS: CALCIUM 8.3 mg/dL (8.5-10.1)
[2021-10-05] MEDS ORDERED: SODIUM CHLORIDE 0.45% 1,000 ML IV SCH ×3 (03:15→12:27)
[2021-10-05] MEDS ORDERED: AZITHROMYCIN IVPB 500 MG in DEXTROSE 5%-WATER - 250 ML IVPB SCH (03:29)
[2021-10-05] MEDS ORDERED: AZITHROMYCIN IVPB 500 MG/250 ML BAG IVPB ONE (03:41)
[2021-10-05] MEDS ORDERED: ALBUTEROL SO4 HFA INHALER IH ONE (06:22)
[2021-10-05] MEDS ORDERED: HEPARIN NA (PORCINE) 5,000 UNITS/ML 1ML VIAL ONE ×2 (06:23→14:08)
[2021-10-05] MEDS: ALBUTEROL SO4 HFA INHALER IH SCH ×3 (06:33→18:00)
[2021-10-05] MEDS: HEPARIN NA (PORCINE) 5,000 UNITS/ML 1ML VIAL SQ SCH ×3 (06:33→21:37)
[2021-10-05 09:12] LABS: HEMATOCRIT 43.2 % (32.4-45.2); HEMOGLOBIN 13.7 GM/dL (10.7-15.3); MCHC 31.8 g/dl (32.0-36.0); MEAN CELL VOLUME 91.1 fl (80-96); MEAN PLT VOLUME 11.4 fl (7.5-11.1); PLATELET COUNT 165 10^3/uL (134-434); RBC 4.74 M/mm3 (3.60-5.2); WHITE BLOOD COUNT 8.4 K/mm3 (4.0-10.0)
[2021-10-05 10:07] LABS: CHOLESTEROL 254 mg/dL (50-200); TRIGLYCERIDES 404 mg/dL (0-150)
[2021-10-05 10:19] LABS: CHLORIDE 116 mmol/L (98-107); SODIUM 151 mmol/L (136-145)
[2021-10-05 10:20] LABS: ANION GAP 10 MMOL/L (8-16); CALCIUM 9.4 mg/dL (8.5-10.1); CO2 26 mmol/L (21-32); GLUCOSE,RANDOM 263 mg/dL (74-106)
[2021-10-05 10:23] LABS: LDL CHOLESTEROL (ONLY SJRH) 155 mg/dL (5-100)
[2021-10-05 10:24] LABS: CREATININE 1.6 mg/dL (0.55-1.3); PHOSPHOROUS 4.2 mg/dL (2.5-4.9)
[2021-10-05 10:25] LABS: BLOOD UREA NITROGEN 73.4 mg/dL (7-18)
[2021-10-05] MEDS: INSULIN SLIDING SCALE (NOVOLOG) 1 VIAL SQ SCH ×3 (10:59→17:42)
[2021-10-05 12:24] LABS: HDL CHOLESTEROL 34 mg/dL (40-60)
[2021-10-05] MEDS: INSULIN (LEVEMIR) 100 UNITS/ML UNITS SQ SCH ×2 (14:22→21:38)
[2021-10-05] MEDS: amLODIPine BESYLATE 5 MG TABLET (FP) PO SCH (17:42)
[2021-10-05] MEDS ORDERED: INSULIN (NOVOLOG) ASPART 100 UNITS/ML 10ML VIAL ONE (18:04)
[2021-10-05 20:21] LABS: BLOOD UREA NITROGEN 57.9 mg/dL (7-18); CALCIUM 9.1 mg/dL (8.5-10.1)
[2021-10-05 20:24] LABS: CREATININE 1.4 mg/dL (0.55-1.3)
[2021-10-06] MEDS: ALBUTEROL SO4 HFA INHALER IH SCH ×4 (01:00→19:00)
[2021-10-06] MEDS: HEPARIN NA (PORCINE) 5,000 UNITS/ML 1ML VIAL SQ SCH ×3 (05:56→21:42)
[2021-10-06] MEDS: INSULIN SLIDING SCALE (NOVOLOG) 1 VIAL SQ SCH ×3 (06:19→16:58)
[2021-10-06] MEDS: INSULIN (LEVEMIR) 100 UNITS/ML UNITS SQ SCH ×2 (06:19→21:43)
[2021-10-06] MEDS ORDERED: INSULIN (NOVOLOG) ASPART 100 UNITS/ML 10ML VIAL ONE ×2 (07:02→07:03)
[2021-10-06 09:46] LABS: HEMOGLOBIN 12.6 GM/dL (10.7-15.3); MCH 29.4 pg (25.7-33.7); MCHC 32.2 g/dl (32.0-36.0); MEAN CELL VOLUME 91.3 fl (80-96); MEAN PLT VOLUME 11.3 fl (7.5-11.1); PLATELET COUNT 137 10^3/uL (134-434); RBC 4.28 M/mm3 (3.60-5.2); RDW 14.3 % (11.6-15.6); WHITE BLOOD COUNT 7.3 K/mm3 (4.0-10.0)
[2021-10-06] MEDS: amLODIPine BESYLATE 5 MG TABLET (FP) PO SCH (10:19)
[2021-10-06] MEDS: SERTRALINE HCL 50 MG TABLET (FP) PO SCH (10:19)
[2021-10-06 10:23] LABS: ALBUMIN 2.7 g/dl (3.4-5.0); BLOOD UREA NITROGEN 40.2 mg/dL (7-18); CALCIUM 8.7 mg/dL (8.5-10.1)
[2021-10-06 10:24] LABS: CREATININE 1.1 mg/dL (0.55-1.3)
[2021-10-06 10:26] LABS: BILIRUBIN,TOTAL 0.6 mg/dL (0.2-1); TOT PROT 6.4 g/dl (6.4-8.2)
[2021-10-06] MEDS ORDERED: POTASSIUM CHLORIDE ORAL LIQUID 20 MEQ/15 ML PO ONE (11:35)
[2021-10-06] MEDS: KCL 10 MEQ IVPB 10 MEQ/100 ML INFUS.BAG IVPB SCH ×3 (11:38→13:46)
[2021-10-06 16:35] VITALS: BMI 31.2
[2021-10-06] MEDS: MONTELUKAST NA 10 MG TABLET PO SCH (21:43)
[2021-10-07] MEDS: ALBUTEROL SO4 HFA INHALER IH SCH ×4 (00:56→17:06)
[2021-10-07] MEDS: HEPARIN NA (PORCINE) 5,000 UNITS/ML 1ML VIAL SQ SCH ×3 (06:27→21:45)
[2021-10-07] MEDS: INSULIN (LEVEMIR) 100 UNITS/ML UNITS SQ SCH ×2 (06:29→21:47)
[2021-10-07] MEDS: INSULIN SLIDING SCALE (NOVOLOG) 1 VIAL SQ SCH ×3 (06:32→17:00)
[2021-10-07] MEDS: amLODIPine BESYLATE 5 MG TABLET (FP) PO SCH (10:31)
[2021-10-07] MEDS: SERTRALINE HCL 50 MG TABLET (FP) PO SCH (10:31)
[2021-10-07 10:51] LABS: BASO % 0.1 % (0-2.0); HEMATOCRIT 37.1 % (32.4-45.2); HEMOGLOBIN 12.3 GM/dL (10.7-15.3); LYMPH % 30.5 % (8-40); MCHC 33.2 g/dl (32.0-36.0); MEAN CELL VOLUME 90.3 fl (80-96); MEAN PLT VOLUME 10.8 fl (7.5-11.1); MONO % 8.9 % (3.8-10.2); NEUT % 59.5 % (42.8-82.8); PLATELET COUNT 121 10^3/uL (134-434); RDW 14.7 % (11.6-15.6); WHITE BLOOD COUNT 7.1 K/mm3 (4.0-10.0)
[2021-10-07 11:14] LABS: BLOOD UREA NITROGEN 25.4 mg/dL (7-18); CALCIUM 8.8 mg/dL (8.5-10.1)
[2021-10-07 11:18] LABS: CREATININE 0.9 mg/dL (0.55-1.3)
[2021-10-07] MEDS ORDERED: DEXTROSE 5%-WATER - 1,000 ML IV SCH (14:00)
[2021-10-07] MEDS: HYDROCHLOROTHIAZIDE 12.5 MG CAPSULE (FP) PO SCH (15:22)
[2021-10-07] MEDS: Insulin (LOG) Aspart 100 UNITS/ML VIAL SQ SCH (17:02)
[2021-10-07] MEDS: MONTELUKAST NA 10 MG TABLET PO SCH (21:45)
[2021-10-08] MEDS: ALBUTEROL SO4 HFA INHALER IH SCH ×4 (00:48→16:59)
[2021-10-08] MEDS: HEPARIN NA (PORCINE) 5,000 UNITS/ML 1ML VIAL SQ SCH ×3 (05:59→21:29)
[2021-10-08] MEDS: INSULIN (LEVEMIR) 100 UNITS/ML UNITS SQ SCH (06:07)
[2021-10-08] MEDS: INSULIN SLIDING SCALE (NOVOLOG) 1 VIAL SQ SCH ×3 (06:08→16:55)
[2021-10-08] MEDS: Insulin (LOG) Aspart 100 UNITS/ML VIAL SQ SCH ×3 (06:08→16:55)
[2021-10-08] MEDS ORDERED: INSULIN (LEVEMIR) 100 UNITS/ML UNITS SQ ONE ×2 (06:29→22:00)
[2021-10-08] MEDS: LISINOPRIL 20 MG TABLET PO SCH (10:27)
[2021-10-08] MEDS: SERTRALINE HCL 50 MG TABLET (FP) PO SCH (10:28)
[2021-10-08] MEDS: HYDROCHLOROTHIAZIDE 12.5 MG CAPSULE (FP) PO SCH (10:28)
[2021-10-08 16:24] LABS: BLOOD UREA NITROGEN 19.6 mg/dL (7-18)
[2021-10-08 16:27] LABS: CREATININE 0.9 mg/dL (0.55-1.3)
[2021-10-08] MEDS ORDERED: POTASSIUM CHLORIDE TABS 20 MEQ TABLET.ER (FP) PO ONE (17:44)
[2021-10-08] MEDS: MONTELUKAST NA 10 MG TABLET PO SCH (21:31)
[2021-10-08] MEDS: BUDESONIDE/FORMETEROL FUMARATE 160/4.5 mcg INHALER IH SCH (21:31)
[2021-10-09] MEDS: ALBUTEROL SO4 HFA INHALER IH SCH ×4 (01:10→18:56)
[2021-10-09] MEDS: HEPARIN NA (PORCINE) 5,000 UNITS/ML 1ML VIAL SQ SCH ×3 (05:15→22:41)
[2021-10-09] MEDS: INSULIN SLIDING SCALE (NOVOLOG) 1 VIAL SQ SCH ×3 (06:03→16:26)
[2021-10-09] MEDS: Insulin (LOG) Aspart 100 UNITS/ML VIAL SQ SCH ×3 (06:03→16:27)
[2021-10-09] MEDS: metFORMIN HCL 500 MG TABLET (FP) PO SCH (06:03)
[2021-10-09] MEDS: BUDESONIDE/FORMETEROL FUMARATE 160/4.5 mcg INHALER IH SCH ×2 (10:09→22:45)
[2021-10-09] MEDS: SERTRALINE HCL 50 MG TABLET (FP) PO SCH (10:09)
[2021-10-09] MEDS: HYDROCHLOROTHIAZIDE 12.5 MG CAPSULE (FP) PO SCH (10:09)
[2021-10-09] MEDS: LISINOPRIL 20 MG TABLET PO SCH (10:09)
[2021-10-09 10:32] LABS: HEMATOCRIT 37.9 % (32.4-45.2); HEMOGLOBIN 12.2 GM/dL (10.7-15.3); MCH 29.3 pg (25.7-33.7); MCHC 32.1 g/dl (32.0-36.0); MEAN CELL VOLUME 91.1 fl (80-96); MEAN PLT VOLUME 11.9 fl (7.5-11.1); PLATELET COUNT 122 10^3/uL (134-434); RBC 4.16 M/mm3 (3.60-5.2); RDW 14.5 % (11.6-15.6); WHITE BLOOD COUNT 8.7 K/mm3 (4.0-10.0)
[2021-10-09 11:00] LABS: ALBUMIN 2.6 g/dl (3.4-5.0)
[2021-10-09 11:01] LABS: BLOOD UREA NITROGEN 23.6 mg/dL (7-18); MAGNESIUM 1.9 mg/dL (1.8-2.4)
[2021-10-09 11:03] LABS: PHOSPHOROUS 1.8 mg/dL (2.5-4.9)
[2021-10-09 11:04] LABS: CREATININE 1.1 mg/dL (0.55-1.3)
[2021-10-09 11:05] LABS: BILIRUBIN,TOTAL 0.7 mg/dL (0.2-1); TOT PROT 6.3 g/dl (6.4-8.2)
[2021-10-09 11:12] LABS: ANISOCYTOSIS 1+; MACROCYTOSIS 0; PLATELET ESTIMATE DECREASED
[2021-10-09] MEDS ORDERED: POTASSIUM CHLORIDE ORAL LIQUID 20 MEQ/15 ML PO ONE (11:15)
[2021-10-09] MEDS: NAPH,MB-DB/K PH,MBDB POWDER PACKET PO SCH ×2 (16:18→22:41)
[2021-10-09] MEDS: MONTELUKAST NA 10 MG TABLET PO SCH (22:41)
[2021-10-10] MEDS: ALBUTEROL SO4 HFA INHALER IH SCH ×3 (00:17→12:22)
[2021-10-10] MEDS: HEPARIN NA (PORCINE) 5,000 UNITS/ML 1ML VIAL SQ SCH ×2 (06:03→13:07)
[2021-10-10] MEDS: NAPH,MB-DB/K PH,MBDB POWDER PACKET PO SCH ×2 (06:03→13:06)
[2021-10-10] MEDS: metFORMIN HCL 500 MG TABLET (FP) PO SCH (06:03)
[2021-10-10] MEDS: INSULIN SLIDING SCALE (NOVOLOG) 1 VIAL SQ SCH ×2 (06:13→12:23)
[2021-10-10] MEDS: Insulin (LOG) Aspart 100 UNITS/ML VIAL SQ SCH ×2 (06:13→12:22)
[2021-10-10] MEDS: BUDESONIDE/FORMETEROL FUMARATE 160/4.5 mcg INHALER IH SCH (10:24)
[2021-10-10] MEDS: SERTRALINE HCL 50 MG TABLET (FP) PO SCH (10:24)
[2021-10-10] MEDS: LISINOPRIL 20 MG TABLET PO SCH (10:24)
[2021-10-10] MEDS: HYDROCHLOROTHIAZIDE 12.5 MG CAPSULE (FP) PO SCH (10:24)
[2021-10-10 10:35] LABS: HEMATOCRIT 38.2 % (32.4-45.2); HEMOGLOBIN 12.4 GM/dL (10.7-15.3); MCH 29.7 pg (25.7-33.7); MCHC 32.4 g/dl (32.0-36.0); MEAN CELL VOLUME 91.5 fl (80-96); MEAN PLT VOLUME 11.6 fl (7.5-11.1); PLATELET COUNT 112 10^3/uL (134-434); RBC 4.18 M/mm3 (3.60-5.2); RDW 14.7 % (11.6-15.6); WHITE BLOOD COUNT 6.3 K/mm3 (4.0-10.0)
[2021-10-10 11:06] LABS: ALBUMIN 2.7 g/dl (3.4-5.0); BLOOD UREA NITROGEN 28.1 mg/dL (7-18); CALCIUM 9.7 mg/dL (8.5-10.1)
[2021-10-10 11:09] LABS: CREATININE 1.1 mg/dL (0.55-1.3); PHOSPHOROUS 2.4 mg/dL (2.5-4.9)
[2021-10-10 11:10] LABS: BILIRUBIN,TOTAL 0.6 mg/dL (0.2-1); TOT PROT 6.6 g/dl (6.4-8.2)
[2021-10-10 11:29] LABS: ANISOCYTOSIS 0; MACROCYTOSIS 0; PLATELET ESTIMATE DECREASED
[2021-10-10] MEDS ORDERED: INSULIN (NOVOLOG) ASPART 100 UNITS/ML 10ML VIAL ONE (11:29)
[2021-10-10] MEDS ORDERED: METOCLOPRAMIDE HCL 10 MG TABLET (FP) PO ONE (12:30)
[2021-10-10 14:35] VITALS: BP 103/56; PULSE 76; TEMP 98.4
== END 2021-10-10 15:36 | disposition home or self-care (01) | DRG 683 ==
LOC: JER 12:03 → JERBED 18:30 → J8W 10-05 17:07
PROVIDERS: ADMIT Internal Medicine
DX: N17.9 Acute kidney failure, unspecified (principal); E87.0 Hyperosmolality and hypernatremia; E78.5 Hyperlipidemia, unspecified; I10 Essential (primary) hypertension; E86.0 Dehydration; H40.9 Unspecified glaucoma; Z88.0 Allergy status to penicillin; K21.9 Gastro-esophageal reflux disease without esophagitis; F41.8 Other specified anxiety disorders; N20.0 Calculus of kidney; J45.909 Unspecified asthma, uncomplicated; E86.1 Hypovolemia; E11.65 Type 2 diabetes mellitus with hyperglycemia; I20.9 Angina pectoris, unspecified; E66.9 Obesity, unspecified; Z68.31 Body mass index [BMI] 31.0-31.9, adult
CPT/HCPCS: 36415; 70450-TC; 71045-TC-FY; 74176-TC; 80048; 80053; 80061; 81003; 82550; 82553; 82962; 83036; 83605; 83735; 84100; 84443; 84484; 85025; 85027; 85610; 85730; 86850; 86900; 86901; 87086; 93005; 93010; 93306-TC; 97116-GP; 97161-GP; 99285-25; C9803; J0131; J1644; U0003; U0005

== ENCOUNTER 2022-03-20 11:28 | Observation (INO) | payer OTHER ==
[2022-03-20 18:41] LABS: BASO % 0.6 % (0-2.0); EOS % 2.1 % (0-4.5); HEMATOCRIT 36.6 % (32.4-45.2); HEMOGLOBIN 12.3 GM/dL (10.7-15.3); LYMPH % 30.3 % (8-40); MCH 30.1 pg (25.7-33.7); MCHC 33.5 g/dl (32.0-36.0); MEAN CELL VOLUME 89.7 fl (80-96); MEAN PLT VOLUME 10.4 fl (7.5-11.1); MONO % 3.5 % (3.8-10.2); NEUT % 63.5 % (42.8-82.8); PLATELET COUNT 214 10^3/uL (134-434); RBC 4.08 M/mm3 (3.60-5.2); RDW 14.3 % (11.6-15.6); WHITE BLOOD COUNT 8.2 K/mm3 (4.0-10.0)
[2022-03-20 18:46] LABS: INR 1.09 (0.83-1.09); PROTHROMBIN TIME (PATIENT) 12.5 SEC (9.7-13.0)
[2022-03-20 18:49] LABS: ACTIVATED PTT 29.8 SECONDS (25.2-36.5)
[2022-03-20 18:59] LABS: CALCIUM 9.2 mg/dL (8.5-10.1)
[2022-03-20 19:00] LABS: ALBUMIN 3.2 g/dl (3.4-5.0); BLOOD UREA NITROGEN 21.4 mg/dL (7-18)
[2022-03-20 19:05] LABS: BILIRUBIN,TOTAL 0.7 mg/dL (0.2-1); TOT PROT 7.8 g/dl (6.4-8.2)
[2022-03-21] MEDS ORDERED: DEXTROSE 5%-0.45% SALINE 1,000 ML IV SCH
[2022-03-21 04:23] VITALS: BMI 34.6
[2022-03-21 08:53] LABS: BASO % 0.1 % (0-2.0); EOS % 2.6 % (0-4.5); HEMATOCRIT 33.7 % (32.4-45.2); HEMOGLOBIN 11.2 GM/dL (10.7-15.3); LYMPH % 32.4 % (8-40); MCH 30.3 pg (25.7-33.7); MCHC 33.4 g/dl (32.0-36.0); MEAN CELL VOLUME 90.7 fl (80-96); MONO % 5.7 % (3.8-10.2); NEUT % 59.2 % (42.8-82.8); PLATELET COUNT 178 10^3/uL (134-434); RBC 3.71 M/mm3 (3.60-5.2); RDW 14.5 % (11.6-15.6); WHITE BLOOD COUNT 6.4 K/mm3 (4.0-10.0)
[2022-03-21 09:10] LABS: CALCIUM 8.6 mg/dL (8.5-10.1)
[2022-03-21 09:14] LABS: CREATININE 0.9 mg/dL (0.55-1.3)
[2022-03-21] MEDS: ALBUTEROL SO4 HFA INHALER IH SCH ×4 (09:14→21:20)
[2022-03-21] MEDS: BUDESONIDE/FORMETEROL FUMARATE 160/4.5 mcg INHALER IH SCH ×2 (10:14→21:21)
[2022-03-21] MEDS: SERTRALINE HCL 50 MG TABLET (FP) PO SCH (10:16)
[2022-03-21] MEDS: LISINOPRIL 20 MG TABLET PO SCH (10:16)
[2022-03-21] MEDS: HYDROCHLOROTHIAZIDE 12.5 MG CAPSULE (FP) PO SCH (10:17)
[2022-03-21] MEDS ORDERED: VANCOMYCIN 1 GM in D5W (PRE-DOCKED) 1,000 MG/250 ML IVPB ONE (10:31)
[2022-03-21] MEDS ORDERED: CEFAZOLIN 2 GM in DEXTROSE 5%-WATER - 50 ML IVPB SCH (14:00)
[2022-03-21] MEDS ORDERED: VANCOMYCIN/WATER 1250 MG 1,250 MG/250 ML BAG IVPB SCH (14:00)
[2022-03-21] MEDS: MONTELUKAST NA 10 MG TABLET PO SCH (21:23)
[2022-03-21] MEDS: ATORVASTATIN CA 40 MG TABLET (FP) PO SCH (21:23)
[2022-03-21] MEDS: VANCOMYCIN 1 GRAM (PRE-DOCKED) 1,000 MG/250 ML BAG IVPB SCH (23:05)
[2022-03-22] MEDS: ALBUTEROL SO4 HFA INHALER IH SCH ×4 (09:17→21:45)
[2022-03-22] MEDS: LISINOPRIL 20 MG TABLET PO SCH (09:18)
[2022-03-22] MEDS: HYDROCHLOROTHIAZIDE 12.5 MG CAPSULE (FP) PO SCH (09:18)
[2022-03-22] MEDS: BUDESONIDE/FORMETEROL FUMARATE 160/4.5 mcg INHALER IH SCH ×2 (09:19→21:45)
[2022-03-22] MEDS: SERTRALINE HCL 50 MG TABLET (FP) PO SCH (09:19)
[2022-03-22] MEDS: VANCOMYCIN 1 GRAM (PRE-DOCKED) 1,000 MG/250 ML BAG IVPB SCH (16:47)
[2022-03-22] MEDS ORDERED: DEXTROSE 5%-WATER 100 ML IVPB ONE (17:16)
[2022-03-22] MEDS ORDERED: CEFEPIME HCL 1 GM VIAL (RESTRICTED TO ID) ONE (17:16)
[2022-03-22] MEDS: CEFEPIME 1 GM in DEXTROSE 5%-WATER 1 GM/100 ML BAG IVPB SCH (17:18)
[2022-03-22] MEDS: CLINDAMYCIN 600MG PREMIX IVPB 600 MG/50 ML BAG IVPB SCH (17:19)
[2022-03-22] MEDS: ATORVASTATIN CA 40 MG TABLET (FP) PO SCH (21:45)
[2022-03-22] MEDS: MONTELUKAST NA 10 MG TABLET PO SCH (21:45)
[2022-03-23] MEDS ORDERED: CEFEPIME HCL 1 GM VIAL (RESTRICTED TO ID) ONE ×3 (00:17→16:47)
[2022-03-23] MEDS ORDERED: DEXTROSE 5%-WATER 100 ML IVPB ONE ×3 (00:18→16:47)
[2022-03-23] MEDS: CLINDAMYCIN 600MG PREMIX IVPB 600 MG/50 ML BAG IVPB SCH ×3 (01:36→18:50)
[2022-03-23] MEDS: CEFEPIME 1 GM in DEXTROSE 5%-WATER 1 GM/100 ML BAG IVPB SCH ×3 (02:17→17:04)
[2022-03-23] MEDS: glipiZIDE-XL 5 MG TAB.ER.24 PO SCH (07:11)
[2022-03-23] MEDS: LISINOPRIL 20 MG TABLET PO SCH (11:27)
[2022-03-23] MEDS: BUDESONIDE/FORMETEROL FUMARATE 160/4.5 mcg INHALER IH SCH ×2 (11:28→22:18)
[2022-03-23] MEDS: ALBUTEROL SO4 HFA INHALER IH SCH ×4 (11:28→22:17)
[2022-03-23] MEDS: HYDROCHLOROTHIAZIDE 12.5 MG CAPSULE (FP) PO SCH (11:28)
[2022-03-23] MEDS: SERTRALINE HCL 50 MG TABLET (FP) PO SCH (11:28)
[2022-03-23] MEDS: ENOXAPARIN NA (PORCINE) 40 MG/0.4 ML DISP.SYRIN SQ SCH (17:04)
[2022-03-23] MEDS: MONTELUKAST NA 10 MG TABLET PO SCH (22:17)
[2022-03-23] MEDS: ATORVASTATIN CA 40 MG TABLET (FP) PO SCH (22:17)
[2022-03-24] MEDS ORDERED: DEXTROSE 5%-WATER 100 ML IVPB ONE ×2 (01:05→08:47)
[2022-03-24] MEDS ORDERED: CEFEPIME HCL 1 GM VIAL (RESTRICTED TO ID) ONE ×2 (01:05→08:47)
[2022-03-24] MEDS: CLINDAMYCIN 600MG PREMIX IVPB 600 MG/50 ML BAG IVPB SCH ×2 (01:08→10:58)
[2022-03-24] MEDS: CEFEPIME 1 GM in DEXTROSE 5%-WATER 1 GM/100 ML BAG IVPB SCH ×2 (01:57→11:00)
[2022-03-24] MEDS: glipiZIDE-XL 5 MG TAB.ER.24 PO SCH (06:00)
[2022-03-24] MEDS: ALBUTEROL SO4 HFA INHALER IH SCH (09:00)
[2022-03-24 10:57] VITALS: BP 134/69; PULSE 63; TEMP 98.6
[2022-03-24] MEDS: LISINOPRIL 20 MG TABLET PO SCH (10:59)
[2022-03-24] MEDS: SERTRALINE HCL 50 MG TABLET (FP) PO SCH (10:59)
[2022-03-24] MEDS: HYDROCHLOROTHIAZIDE 12.5 MG CAPSULE (FP) PO SCH (10:59)
[2022-03-24] MEDS: ENOXAPARIN NA (PORCINE) 40 MG/0.4 ML DISP.SYRIN SQ SCH (10:59)
[2022-03-24] MEDS: BUDESONIDE/FORMETEROL FUMARATE 160/4.5 mcg INHALER IH SCH (11:00)
== END 2022-03-24 12:30 | disposition home or self-care (01) ==
LOC: JER 11:28 → JERBED 19:49 → J7W 03-21 04:05
PROVIDERS: ADMIT Internal Medicine; ATTEND Internal Medicine
PROC: 3E03329 Introduction of Other Anti-infective into Peripheral Vein, Percutaneous Approach (ICD-10-PCS; principal; 2022-03-20)
PROC: 3E0337Z Introduction of Electrolytic and Water Balance Substance into Peripheral Vein, Percutaneous Approach (ICD-10-PCS; 2022-03-20)
PROC: 3E023GC Introduction of Other Therapeutic Substance into Muscle, Percutaneous Approach (ICD-10-PCS; 2022-03-20)
DX: N61.1 Abscess of the breast and nipple (principal); E11.9 Type 2 diabetes mellitus without complications; I10 Essential (primary) hypertension; E78.5 Hyperlipidemia, unspecified; J45.909 Unspecified asthma, uncomplicated; E66.8 Other obesity; Z68.34 Body mass index [BMI] 34.0-34.9, adult; Z20.822 Contact with and (suspected) exposure to COVID-19; Z88.0 Allergy status to penicillin; K21.9 Gastro-esophageal reflux disease without esophagitis
CPT/HCPCS: 36415; 71045-TC-FY; 76641-TC-LT; 80048; 80053; 82962; 83036; 85025; 85610; 85730; 87040; 87070; 87186; 87205; 93005; 93010; 96361; 96365; 96368; 96372; 99285-25; C9803-CS; G0378; U0003; U0005

== ENCOUNTER 2025-03-21 07:22 | Inpatient (IN) | payer MEDICARE, OTHER ==
[2025-03-21 08:54] LABS: ABSOLUTE IMMATURE GRANULOCYTES 0.02 x10^3/uL (0.0-0.031); BASOPHILS # 0.01 x10^3/uL (0.01-0.08); EOSINOPHIL % 1.6 % (0.7-5.8); EOSINOPHILS # 0.10 x10^3/uL (0.04-0.36); MCHC 32.2 g/dl (32.2-35.5); MEAN CELL VOLUME 91.3 fl (79.4-94.8); MEAN PLT VOLUME 12.2 fl (9.4-12.3); MONOCYTE # 0.36 x10^3/uL (0.24-0.86); MONOCYTE % 5.8 % (4.7-12.5); RDW 13.9 % (12.4-16.6)
[2025-03-21 08:58] LABS: INR 0.98 (0.83-1.09); PROTHROMBIN TIME (PATIENT) 10.7 SEC (9.7-13.0)
[2025-03-21 09:15] LABS: CO2 23.0 mmol/L (21-32); GLUCOSE,RANDOM 332.0 mg/dL (74-106)
[2025-03-21 09:17] LABS: CREATININE 0.9 mg/dL (0.55-1.3); SGOT/AST 16.0 U/L (15-37); SGPT/ALT 23.0 U/L (13-61)
[2025-03-21 09:19] LABS: TOT PROT 7.3 g/dl (6.4-8.2)
[2025-03-21 09:20] LABS: ALK PHOS 110.0 U/L (45-117)
[2025-03-21 10:19] LABS: HCV DIAGNOSTIC IN-HOUSE W/RFLX NON-REACTIVE (NONREACTIVE)
[2025-03-21 10:20] LABS: HIV INTERPRETATION NEGATIVE (NEGATIVE)
[2025-03-21] MEDS: SODIUM CHLORIDE 0.9% 500 ML INFUS.BAG IV ONE (10:40)
[2025-03-21] MEDS ORDERED: CEFTRIAXONE 1 GM/50 ML BAG ONE (13:28)
[2025-03-21] MEDS: CEFTRIAXONE 1,000 MG in DEXTROSE 5%-WATER - 50 ML IVPB ONE (13:33)
[2025-03-21] MEDS ORDERED: NALOXONE HCL 0.4 MG/ML VIAL ONE (14:43)
[2025-03-21] MEDS: VANCOMYCIN HCL 1,500 MG in DEXTROSE 5%-WATER - 500 ML IVPB ONE (17:01)
[2025-03-21] MEDS ORDERED: ACETAMINOPHEN 1000 MG/100 ML BAG IVPB PRN (17:38)
[2025-03-21] MEDS: CEFTRIAXONE 1 GM in DEXTROSE 5%-WATER - 50 ML IVPB SCH (17:44)
[2025-03-21] MEDS ORDERED: ALBUTEROL SO4 HFA INHALER IH ONE (21:16)
[2025-03-21] MEDS: ALBUTEROL SO4 HFA INHALER IH SCH (21:17)
[2025-03-22] MEDS ORDERED: ATORVASTATIN CA 40 MG TABLET (FP) ONE (00:10)
[2025-03-22] MEDS: ATORVASTATIN CA 40 MG TABLET (FP) PO SCH ×2 (00:12→22:00)
[2025-03-22] MEDS: INSULIN (NOVOLOG) ASPART 100 UNITS/ML 10ML VIAL SQ SCH (01:41)
[2025-03-22] MEDS: LISINOPRIL 20 MG TABLET PO SCH (10:55)
[2025-03-22] MEDS: CEFTRIAXONE 1 GM in DEXTROSE 5%-WATER - 50 ML IVPB SCH (10:55)
[2025-03-22] MEDS ORDERED: MIDAZOLAM HCL 2 MG/2 ML SINGLE DOSE VIAL ONE (11:53)
[2025-03-22] MEDS ORDERED: PROPOFOL 20 ML ONE (11:53)
[2025-03-22] MEDS ORDERED: LIDOCAINE HCL/PF 2% SDV 5ML VIAL ONE (11:54)
[2025-03-22] MEDS ORDERED: PROMETHAZINE HCL 25 MG/1 ML VIAL IVPB PRN ×2 (11:57→13:28)
[2025-03-22] MEDS ORDERED: ONDANSETRON 4 MG/2 ML VIAL IVPUSH PRN ×2 (11:57→13:28)
[2025-03-22] MEDS ORDERED: LACTATED RINGERS SOLUTION 1,000 ML IV SCH (12:00)
[2025-03-22] MEDS ORDERED: ACETAMINOPHEN INJECTION 100 ML ONE (12:30)
[2025-03-22] MEDS ORDERED: ONDANSETRON 4 MG/2 ML VIAL ONE (12:30)
[2025-03-22] MEDS ORDERED: ACETAMINOPHEN 1000 MG/100 ML BAG IVPB PRN (13:28)
[2025-03-22] MEDS: LACTATED RINGERS SOLUTION 1,000 ML IV SCH (13:58)
[2025-03-22 16:18] VITALS: BMI 32.5
[2025-03-22] MEDS: ALBUTEROL SO4 HFA INHALER IH SCH (16:38)
[2025-03-22] MEDS: INSULIN ASPART SLIDING SCALE (NOVOLOG) 1 VIAL SQ SCH (16:40)
[2025-03-22 23:58] VITALS: RESP 18
[2025-03-23 07:05] VITALS: PULSE 76
[2025-03-23] MEDS: CEFTRIAXONE 1 GM in DEXTROSE 5%-WATER - 50 ML IVPB SCH (10:18)
[2025-03-23] MEDS: LISINOPRIL 20 MG TABLET PO SCH (10:19)
[2025-03-23 12:34] VITALS: BP 118/55; TEMP 99.1
== END 2025-03-23 15:41 | disposition home or self-care (01) | DRG 572 ==
LOC: JER 07:22 → JERBED 13:18 → J6S 03-22 09:17 → OBSVTOIN 03-22 10:21
PROVIDERS: ADMIT Internal Medicine; ATTEND Internal Medicine
PROC: 0W9F3ZZ Drainage of Abdominal Wall, Percutaneous Approach (ICD-10-PCS; 2025-03-22)
PROC: 0JB80ZZ Excision of Abdomen Subcutaneous Tissue and Fascia, Open Approach (ICD-10-PCS; principal; 2025-03-22 12:00)
DX: L02.211 Cutaneous abscess of abdominal wall (principal); I10 Essential (primary) hypertension; E78.5 Hyperlipidemia, unspecified; J45.909 Unspecified asthma, uncomplicated; E11.65 Type 2 diabetes mellitus with hyperglycemia
CPT/HCPCS: 36415; 72192-TC; 74160-TC; 80053; 82962; 83605; 83690; 85025; 85610; 86803; 86850; 86900; 86901; 87070; 87205; 87389; 88304-TC; 94760; 99285-25; G0378